=== PATIENT | female | born 1975 | race Caucasian/White ===

== ENCOUNTER → 2020-02-19 12:47 | Outpatient (CLI) | payer MEDICARE, OTHER, SELFPAY ==
--- NOTE | ~2020-02-19 | MR_ITS ---
EXAMINATION: MR foot LT wo con DATE: 02/19/2020 14:00 INDICATION: Left foot pain. TECHNIQUE: Magnetic resonance imaging (MRI) of the left foot was performed without intravenous contra st. Sequences included sagittal T1-weighted FSE and STIR FSE, long-axis PD-weighted FS FSE and PD-lillie ghted FSE, and short-axis PD-weighted FS FSE and T1-weighted FSE. COMPARISON: Left foot radiographs 08/18/2015 FINDINGS: Bone alignment is normal. No fracture. There is a skin marker dorsal to the fourth and fift h metatarsals. There is no abnormality in this area. There is mild chondrosis of first metatarsophala ngeal joint. Lisfranc ligament is normal. The flexor and extensor tendons are normal. The muscle jung ies are normal. IMPRESSION: 1. No etiology for the patient's symptoms. Reviewed, dictated and finalized at location A.
--- NOTE | ~2020-02-19 | MR_ITS ---
EXAMINATION: MR ankle LT wo con DATE: 02/19/2020 14:31 INDICATION: Left ankle pain. TECHNIQUE: Magnetic resonance imaging (MRI) of the left ankle was performed without intravenous contr ast. Sequences included sagittal PD-weighted FS FSE, sagittal PD-weighted FSE, coronal PD-weighted FS FSE, coronal PD-weighted FSE, axial PD-weighted FS FSE, and axial PD-weighted FSE. COMPARISON: Left foot radiographs 08/18/2015 FINDINGS: Medial ankle ligaments: There are changes of prior sprain of superficial component of the deltoid ligament characterized by i ncreased signal intensity. The deep component of the deltoid ligament is normal. Lateral ankle ligaments: There are changes of prior sprains of anterior talofibular ligament and calcaneofibular ligament nelson acterized by increased signal intensity. Posterior talofibular ligament is normal. There are changes of prior sprain of anterior tibiofibular ligament characterized by thickening and increased signal in tensity. Posterior tibiofibular ligament is normal. Tendons: The peroneal tendons, anterior and medial ankle tendons, Achilles tendon are normal. Plantar fascia: Normal. There is an enthesophyte at the calcaneal attachment. Bones/other: Bone alignment is normal. Talar dome is normal. Bone marrow signal intensity is normal. There is a sk in marker medial to calcaneus. Fluid: There is a small ankle joint effusion. There is subcutaneous edema at the ankle, medial worse than la teral. IMPRESSION: 1. Changes of prior medial and lateral ankle sprains. 2. Small ankle joint effusion. Reviewed, dictated and finalized at location A.
== END ==
PROVIDERS: Visit Provider Physician Assistant Medical
DX: M25.472 Effusion, left ankle (principal); M25.572 Pain in left ankle and joints of left foot
CPT/HCPCS: 73718; 73721

== ENCOUNTER 2024-09-04 15:04 | Outpatient (CLI) | payer OTHER, MEDICARE, SELFPAY ==
--- NOTE | ~2024-09-04 | MR_ITS ---
EXAMINATION: MR brain/brain stem wo/w con DATE: 09/04/2024 16:02 INDICATION: Other amnesia. TECHNIQUE: Magnetic resonance imaging (MRI) of the brain and brainstem was performed without and with 18 mL MultiHance intravenous contrast. COMPARISON: None. FINDINGS: There is no intracranial hemorrhage, acute infarction, or abnormal intracranial mass lesion . There are scattered areas of nonspecific increased T2-weighted signal intensity in the cerebral whi te matter. The ventricles are normal in size. The paranasal sinuses are clear. The orbits are normal. The mastoid air cells are normal. IMPRESSION: 1. Mild nonspecific cerebral white matter disease, which likely represents chronic small vessel ische judd disease. Reviewed, dictated and finalized at location A. R TENDER IMPRESSION: 1. Mild nonspecific cerebral white matter disease, which likely represents guest room attendant jose d small vessel ischemic disease.
--- NOTE | ~2024-09-04 | MR_ITS ---
EXAMINATION: MR foot RT wo con DATE: 09/04/2024 15:46 INDICATION: Pain at the medial right midfoot post fall down stairs several months prior. TECHNIQUE: Magnetic resonance imaging (MRI) of the right fore/mid foot was performed without intraven ous contrast. Sequences included sagittal T1-weighted FSE, sagittal fluid sensitive FSE STIR, coronal PD-weighted FS FSE, coronal T1-weighted FSE, axial PD-weighted FS FSE, and axial PD-weighted FSE. COMPARISON: None FINDINGS: Bone alignment is normal. Normal bone marrow signal throughout with no reactive edema, fracture or pa thologic marrow replacing process. There is mild osteoarthritis at the first metatarsophalangeal, the significant third tarsal metatarsal and several interphalangeal joints. No joint effusions, tenosyno vitis, bursitis or other abnormal fluid collections. The visualized portions of the flexor and extens or tendons are normal. The Lisfranc ligament complex as well as the collateral ligament complex at th e metatarsophalangeal and interphalangeal joints are normal.. IMPRESSION: 1. Typical distribution of mild polyarticular osteoarthritis in the mid and forefoot. Otherwise unrem arkable right foot MRI. Reviewed, dictated and finalized at location B. L TURNER IMPRESSION: 1. Typical distribution of mild polyarticular osteoarthritis in the mid and for efoot. Otherwise unremarkable right foot MRI.
== END 2024-09-04 15:05 | disposition home or self-care (01) ==
LOC: MICIMG 15:07
PROVIDERS: PCP Physician Assistant Medical; Visit Provider Physician Assistant Medical
DX: M79.671 Pain in right foot (principal); R41.3 Other amnesia; G43.909 Migraine, unspecified, not intractable, without status migrainosus
CPT/HCPCS: 70553; 73718; A9577